=== PATIENT | female | born 1980 | race Caucasian/White ===

== ENCOUNTER 2017-03-31 10:57 | Emergency (ER) | payer OTHER ==
[2017-03-31 11:03] VITALS: TEMP 98.2
--- NOTE | 2017-03-31 11:50 | EDPHY ---
H & P Time Seen by Provider: 03/31/17 11:11 HPI/ROS: HPI Left ear pain. 36-year-old female by private vehicle. She was sent from the office of her primary care physician. She was diagnosed with an otitis media on the left side on . She was placed on Augmentin at that time. She complains of worsening pain behind the ear involving the left mastoid. Her primary care physician is concerned that she may be developing a mastoiditis. She was sent for appropriate imaging to evaluate this. The patient has not had a fever. She does not have any other complaints. ROS: Constitutional: No fever, no chills. No weakness. Eyes: No discharge. No changes in vision. ENT: No sore throat. She has had nasal congestion and clear rhinorrhea for the last week. As above. Respiratory: No cough. No shortness of breath. Cardiac: No chest pain, no palpitations. Gastrointestinal: No abdominal pain, no vomiting, no diarrhea. Musculoskeletal: No back pain. No neck pain. No myalgias or arthralgias. Skin: No rashes. Neurological: No headache. No focal weakness or altered sensation. Past medical history: No significant past medical history. Social history: Nonsmoker. No alcohol. Here by herself. Physical Exam: General Appearance: Alert, no distress. This patient is responding to questions appropriately and in full sentences. This patient appears well- hydrated and well-nourished. Eyes: Pupils equal and round no pallor or injection. No lid edema, erythema or injection. ENT, Mouth: Mucous membranes are moist. The pharyngeal tissues are unremarkable. No edema or swelling. No asymmetry suggestive of abscess. No erythema or exudates. Right external auditory canal and right tympanic membrane are unremarkable on speculum exam. The left external auditory canal is patent. The left tympanic membrane is edematous and swollen with loss of landmarks indicative of acute otitis media. There is no obvious swelling or erythema posterior to to the ear and involving the mastoid area. Neurological: Motor sensory function is grossly intact. Cranial nerves are normal. Gait is normal. Skin: Warm and dry, no rashes. Musculoskeletal: Neck is supple and nontender. No cervical, submandibular or submental lymphadenopathy. Extremities are symmetrical. All joints range without pain or impingement. Psychiatric: No agitation. No depression. Database: EKG: Imaging: CT scan of head without contrast: Sinusitis is noted in the maxillary sinuses and the ethmoid sinuses. There is fluid in left middle ear. There is fluid in the left mastoid air cells. There is no bony destruction involving the mastoid air cells.Results discussed with staff radiologist. Procedures: Emergency department course: Vital signs reviewed and are normal. After my evaluation, I discussed CT imaging to evaluate her mastoid air cells and the possibility of an osteomyelitis. She endorses this plan. 1:15 p.m., spoke with on-call ENT physician corporate legal assistant Tanner. Case discussed in detail. Results of CT scan discussed in detail. Plan will be to change the patient's antibiotics from Augmentin to Levaquin. She will be started on Decadron. ENT will see her on close follow-up on Sunday. 1:20 p.m., the patient was given 750 mg of oral Levaquin and 10 mg of oral Decadron. I discussed follow-up plan with ENT. She is in agreement. She feels comfortable going home. Return to emergency department precautions were thoroughly reviewed with her. All of her questions were answered. She will be discharged home with prescriptions for Levaquin and a 1 time dose of Decadron to be taken tomorrow. She was discharged home in good condition. Differential Diagnosis: The differential diagnosis on this patient includes but is not limited to otitis media. Mastoiditis, malignant otitis externa, otitis externa unlikely. This represents a partial list of diagnoses considered. These considerations are based on history, physical exam, past history, reassessment and diagnostic testing. Smoking Status: Never smoked Constitutional: Initial Vital Signs Temperature (C) 36.8 C 03/31/17 11:00 Heart Rate 73 03/31/17 11:00 Respiratory Rate 18 03/31/17 11:00 Blood Pressure 148/89 H 03/31/17 11:00 O2 Sat (%) 98 03/31/17 11:00 O2 Delivery Mode Room Air Allergies/Adverse Reactions: No Known Allergies Allergy (Verified 03/31/17 11:03) Home Medications: Medication Instructions Recorded CALCIUM 1,000 mg PO DAILY 08/15/13 1 tab PO DAILY 08/15/13 Dexamethasone [Decadron 4 MG (RX)] 8 mg PO ONCE #2 tab 03/31/17 levOFLOXACIN [levAQUIN (*)] 750 mg PO DAILY #7 tab 03/31/17 Medical Decision Making - Data Points Medications Given: Discontinued Medications Dexamethasone (Decadron) 10 mg PO EDNOW ONE Stop: 03/31/17 13:07 Last Admin: 03/31/17 13:57 Dose: 10 mg Ibuprofen (Motrin) 600 mg PO EDNOW ONE Stop: 03/31/17 11:56 Last Admin: 03/31/17 11:59 Dose: 600 mg Levofloxacin (Levaquin) 750 mg PO EDNOW ONE PRN Reason: Protocol Stop: 03/31/17 13:07 Last Admin: 03/31/17 13:56 Dose: 750 mg Departure - Departure Disposition: Home, Routine, Self-Care Clinical Impression: Otitis media Condition: Good Instructions: Otitis Media (ED) Additional Instructions: Read and follow provided instructions. Follow-up with ENT, Dr. Cleveland Bustos, or 1 of his partners on Sunday for re- evaluation as discussed. Call their office Sunday for appointment time. They should be open at 8:30 a.m. to 9:00 a.m.. Take Levaquin antibiotic once daily as prescribed for 7 days. Unless otherwise directed by ENT. 1 time dose of Decadron, 8 mg to be taken tomorrow afternoon. Return to the emergency department for worsening pain, fever, facial swelling or other serious concerns. Referrals: Cleveland Bustos MD [Medical Doctor] - As per Instructions Prescriptions: Dexamethasone [Decadron 4 MG (RX)] 8 mg PO ONCE #2 tab levOFLOXACIN [levAQUIN (*)] 750 mg PO DAILY #7 tab
[2017-03-31] MEDS ORDERED: IBUPROFEN 600 MG TAB PO ONE (11:55)
[2017-03-31] MEDS ORDERED: DEXAMETHASONE 4 MG TAB PO ONE (13:06)
[2017-03-31 14:03] VITALS: BP 123/82; PULSE 64; RESP 16; O2SAT 96
== END 2017-03-31 14:02 | disposition home or self-care (01) ==
DX: H66.92 Otitis media, unspecified, left ear (principal)